=== PATIENT | male | born 2000 | race African-American/Black ===

== ENCOUNTER 2019-02-25 16:52 | Emergency (ER) | payer BC ==
[~2019-02-25] VITALS: Ht 177.8 cm; Wt 75.3 kg
[2019-02-25 17:05] VITALS: BP 146/66
[2019-02-25] MEDS ORDERED: DOXY100T PO (17:32)
[2019-02-25] MEDS ORDERED: MUPI22OI2 TP (17:32)
--- NOTE | 2019-02-25 17:34 | PHYS DOC ---
Past Medical History Past Medical History: No Pertinent History Adult General Chief Complaint Chief Complaint: GROIN PAIN HPI HPI Patient is a 18-year-old male who presents to the emergency department for evaluation. He states he is having a painful rash on his scrotum bilaterally, left greater than right. He denies any testicular pain, dysuria, urinary frequency or hesitancy. He denies any penile discharge. His symptoms began after he put some deodorant in his groin because it was somewhat smelly. He has not had any nausea, vomiting, or fever. There are no alleviating or exacerbating factors to his symptoms. He reports he has never been sexually active in his entire life, and is fairly adamant about this point. Review of Systems Review of Systems Constitutional: Denies fever or chills [] GI: Denies abdominal pain, nausea, vomiting, bloody stools or diarrhea [] Musculoskeletal: Denies back pain or joint pain [] Integument: Denies rash or skin lesions [] Endocrine: Denies polyuria or polydipsia [] Physical Exam Physical Exam PHYSICAL EXAM: CONSTITUTIONAL: Well developed, well nourished HEAD: normocephalic, atraumatic EENT: PERRL, EOMI. Conjunctivae normal color, sclerae non-icteric; moist mucous membranes. NECK: Supple, non-tender; no meningismus. LUNGS: Lungs CTA, breathing even and unlabored. Normal air movement. HEART: Regular rate and rhythm, no murmur CHEST: No deformity; non-tender ABDOMEN: The abdomen is soft, and non-tender, no masses or bruits. EXTREM: Normal ROM; no deformity, no calf tenderness. Normal pulses palpable in all extremities. There is no pedal edema. SKIN: No rash; no diaphoresis NEURO: Alert; normal speech and cognition; CN's grossly intact; strength grossly intact without focal deficit. BACK: No CVA TTP. GENITOURINARY: Normal external genitalia. There is no penile discharge. There are no lesions on the patient's penis. There are a few areas of excoriated circular lesions, which almost appear like areas of folliculitis with erosion, on the scrotum, left greater than right. The testicles are nontender. EKG EKG [] Radiology/Procedures Radiology/Procedures [] Course & Med Decision Making Course & Med Decision Making []5:30 PM: I'm doubtful the patient's illnesses sexually transmitted, he denies every prior history of sexual activity but he'll be tested nonetheless. I do suspect the symptoms related to a dermatitis/folliculitis related to the patient 's application of the scrotal area. He will be given topical and oral antibiotics. I discussed importance of close follow-up and return precautions. Dragon Disclaimer Dragon Disclaimer This electronic medical record was generated, in whole or in part, using a voice recognition dictation system. Departure Departure Impression: Primary Impression: Folliculitis Disposition: HOME, SELF-CARE Condition: STABLE Referrals: PADMINI PATEL MD Patient Instructions: Folliculitis Scripts Mupirocin (MUPIROCIN OINTMENT) 22 Gm Oint...g. 1 EFRAIN TP TID for WOUND CARE, #1 TUBE Prov: BISI EDMOND MD 02/25/19 Doxycycline Hyclate (DOXYCYCLINE HYCLATE) 100 Mg Tablet 1 TAB PO BID, #14 TAB Prov: BISI EDMOND MD 02/25/19 BISI EDMOND MD Feb 25, 2019 17:34
[2019-02-25 17:42] LABS: BILIRUBIN,URINE NEGATIVE (NEG); CLARITY,URINE CLEAR; COLOR,URINE YELLOW; NITRITE,URINE NEGATIVE (NEG); PH,URINE 5.5; PROTEIN,URINE NEGATIVE (NEG-TRACE)
[2019-02-25 17:46] LABS: BACTERIA,URINE 0 /HPF (0-FEW); RBC,URINE 0 /HPF (0-2); SQUAMOUS EPITHELIAL CELL,UR FEW /LPF; WBC,URINE OCC /HPF (0-4)
== END 2019-02-25 17:49 | disposition home or self-care (01) ==
LOC: ER 16:52
DX: L73.8 Other specified follicular disorders (principal); N50.82 Scrotal pain
CPT/HCPCS: 36415; 81001; 86592; 87491; 87591; 99283